=== PATIENT | male | born 1970 | race Caucasian/White ===

== ENCOUNTER 2025-03-12 11:12 | Outpatient (REF) | payer OTHER, SELFPAY ==
--- NOTE | 2025-03-12 | EMG_ITS ---
Chief complaint: For about a year patient has been having right footdrop with numbness on dorsum of right foot. He denies any significant pain. History of type 1 diabetes. Reason for referral: Evaluate for radiculopathy versus neuropathy Referred by: Javier SEXTON Procedure done: Bilateral lower extremity NCS/EMG Precautions and/or limitations: None The limb temperature was monitored continuously and remained between 32-36 degrees C during the performance of the NCS. Nerve Conduction Studies Anti Sensory Summary Table ?Stim Site NR Onset (ms) Norm Onset (ms) Peak (ms) Norm Peak (ms) O-P Amp (?V) Norm O-P Amp Site1 Site2 Delta-0 (ms) Dist (cm) Billy (m/s) Norm Billy (m/s) Left Sural Anti Sensory (Lat Mall) Calf ? 3.4 4.0 <4.0 10.2 >5.0 Calf Lat Mall 3.4 14.0 41 Right Sural Anti Sensory (Lat Mall) Calf ? 3.0 3.5 <4.0 12.6 >5.0 Calf Lat Mall 3.0 14.0 47 Motor Summary Table ?Stim Site NR Onset (ms) Norm Onset (ms) O-P Amp (mV) Norm O-P Amp iAmp (mV) Amp (1st) (%) Site1 Site2 Delta-0 (ms) Dist (cm) Billy (m/s) Norm Billy (m/s) Left Peroneal Motor (Ext Dig Brev) Ankle ? 5.1 <4.0 1.0 >2.5 1.1 100.0 Ankle Ext Dig Brev 5.1 0.0 B Fib ? 11.3 1.0 1.2 100.0 B Fib Ankle 6.2 30.0 48 >40 Poplt ? 12.6 1.0 1.2 100.0 Poplt B Fib 1.3 5.0 38 >40 Right Peroneal Motor (Ext Dig Brev) Ankle ? 5.4 <4.0 4.1 >2.5 4.9 100.0 Ankle Ext Dig Brev 5.4 0.0 B Fib ? 11.3 6.6 8.1 161.0 B Fib Ankle 5.9 27.5 47 >40 Poplt ? 12.5 6.5 8.0 158.5 Poplt B Fib 1.2 6.0 50 >40 Right Peroneal TA Motor (Tib Ant) Fib Head ? 3.4 <4.2 3.0 3.2 100.0 Fib Head Tib Ant 3.4 0.0 Poplit ? 4.2 <5.7 3.0 3.2 100.0 Poplit Fib Head 0.8 6.0 75 >40.5 Left Tibial Motor (Abd Thakkar Brev) Ankle ? 4.1 <5 13.4 >2.5 16.7 100.0 Ankle Abd Thakkar Brev 4.1 0.0 Knee ? 13.1 10.7 13.3 79.9 Knee Ankle 9.0 37.0 41 >40 Right Tibial Motor (Abd Thakkar Brev) Ankle ? 4.5 <5 11.4 >2.5 13.8 100.0 Ankle Abd Thakkar Brev 4.5 0.0 Knee ? 14.5 10.9 13.4 95.6 Knee Ankle 10.0 38.0 38 >40 EMG ?Side Muscle Nerve Root Ins Act Fibs Psw Amp Dur Poly Recrt Int Pat Comment Right AbdHallucis MedPlantar S1-2 Nml Nml Nml Nml Nml 0 Nml Complete Right AntTibialis Dp Br Peron L4-5 Nml Nml Nml Nml Nml 0 Nml Complete Right PostTibialis Tibial L5, S1 Nml Nml Nml Nml Nml 0 Nml Complete Right MedGastroc Tibial S1-2 Incr 1+ 1+ Nml Nml 0 Nml Complete Right VastusMed Femoral L2-4 Nml Nml Nml Nml Nml 0 Nml Complete Left AbdHallucis MedPlantar S1-2 Nml Nml Nml Nml Nml 0 Nml Complete Left AntTibialis Dp Br Peron L4-5 Nml Nml Nml Nml Nml 0 Nml Complete Left PostTibialis Tibial L5, S1 Nml Nml Nml Nml Nml 0 Nml Complete Left MedGastroc Tibial S1-2 Nml Nml Nml Nml Nml 0 Nml Complete Left VastusMed Femoral L2-4 Nml Nml Nml Nml Nml 0 Nml Complete Paraspinal EMG ?Side Muscle Nerve Root Ins Act Fibs Psw Comment Right Lumbar Upper Rami Nml Nml Nml Right Lumbar Mid Rami Incr 1+ 1+ Right Lumbar Lower Rami Incr 1+ 1+ Left Lumbar Upper Rami Nml Nml Nml Left Lumbar Mid Rami Nml Nml Nml Left Lumbar Lower Rami Nml Nml Nml FINDINGS: Right peroneal nerve showed prolonged distal latency, normal amplitude and normal conduction velocity. No conduction block across fibular neck. Right tibial nerve showed normal distal latency, normal amplitude and slow conduction velocity. Left peroneal nerve showed very small amplitudes, almost absent, with slow conduction velocity across fibular neck. All other nerves tested were within normal. Concentric needle EMG was performed in selected muscles of the bilateral lower extremity and lumbar paraspinals. Study revealed signs of electric abnormalities as shown in the table above. Right medial gastrocnemius showed increased insertional activity, PSWs and fibrillations. Right mid/low lumbar paraspinals showed increased insertional activity, PSWs and fibrillations. IMPRESSION: 1. This is an abnormal study. 2. There is electrodiagnostic evidence for right L5-S1 radiculopathy. 3. 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 However patient has a cyst on top of EDB muscle which could have prevented full stimulation. 4. There is no evidence for lumbar plexopathy or peripheral neuropathy. CLINICAL COMMENT: Further clinical correlation recommended. Thank you for your kind referral. Lakisha Massey MD, ANNAMARIE Board Certified, [place] Board of Physical Medicine and Rehabilitation (ABPMR) Board Certified, [place] Board of Electrodiagnostic Medicine (ABEM) CODIN [id number] x 2 extremities MTDD
--- OUTSIDE RECORDS SUMMARY | 2025-03-12 13:52 | XMS_ITS | Clinical Summary ---
Author Organization [place] [facility] lin Address [address] [facility] [place] [address] Care Team Providers Care Production Trainer Name Role Phone Unavailable Primary Care Provider Unavailabl e Social History Tobacco Use Types Packs/Day Years Used Date Smoking Tobacco: Never Assessed Sex and Gender Information Value Date Recorded Sex Assigned at Not on file Legal Sex Male 9:29 AM EDT Gender Identity Not on file Sexual Orientation Not on file Plan of Treatment Not on file Medical Devices Not on file Insurance [facility]
--- OUTSIDE RECORDS SUMMARY | 2025-03-12 13:52 | XMS_ITS | Clinical Summary ---
Author Organization [address] Building Address [address] [place] [address] Phone Care Team Providers Care Package Reinspector Name Role Phone Yarely Rodriguez RESERVATION AGENT Primary Care Provider [phone] Allergies No known active allergies Medications levothyroxine (SYNTHROID, LEVOTHROID) 100 mcg tablet Take 1 tablet (100 mcg total) by mouth 1 (one) time each day. Active atorvastatin (LIPITOR) 20 mg tablet Take 1 tablet (20 mg total) by mouth 1 (one) time each day. Active insulin lispro (HumaLOG) 100 UNIT/ML patient supplied pump 1 EA by continuous sub-Q infusn (via wearable injector) route continuously. 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 Hyperlipidemia 08/09/2023 Type 1 diabetes mellitus ([facility] V24, [facility] V 28) 08/09/2023 Encounters Date Type Department Care Team Description 01/20/2025 Telephone Internal Medicine - [address] [phone] Yarely Rodriguez NP from Last 3 Months Immunizations Immunization Administration Dates Next Due Pneumococcal conjugate 20 va lent (Prevnar 20, PCV 20) 2mo and older 12/12/2023 Tdap Tetanus diptheria acell ular pertussis (Boostrix; Adacel) 7yo and older 11/04/2024 Medical History Medical History Date Comments Juvenile arthritis ([facility] V24, [facility] V28) Family History Medical History Relation Name Comments Hyperlipidemia Brother Hypertension Brother Glaucoma Father Prostate cancer Father Diabetes Mother Heart attack Mother Hyperlipidemia Sister Hypertension Sister Relation Name Status Comments Brother Father Mother Sister Social History Tobacco Use Types Packs/Day Years Used Date Smoking Tobacco: Never Smokeless Tobacco: Never Alcohol Use Standard Drinks/Week Comments Yes 10 (1 standard drink = 0.6 oz pu re alcohol) Sex and Gender Information Value Date Recorded Sex Assigned at Male 08/05/2024 3:48 PM EDT Legal Sex Male 12:28 AM EST Gender Identity Male 08/05/2024 3:48 PM EDT Sexual Orientation Straight 08/05/2024 3: 48 PM EDT Obstetrics History Last Filed Vital Signs Vital Sign Reading Time Taken Comments Blood Pressure 132/86 11/04/2024 11:13 AM EDT Pulse 68 11/04/2024 11:13 AM EDT Temperature 36.7 C (98 F) 11/04/2024 11:13 AM EDT Respiratory Rate - - Oxygen Saturation 97% 11/04/2024 11:13 AM EDT Inhaled Oxygen Concentration - - Weight 84 kg (185 lb 3.2 oz) 06/07/2024 9:27 AM EST Height 167.6 cm (5' 6 ) 06/07/2024 9:27 AM EST Body Mass Index 29.89 06/07/2024 9:27 AM EST Plan of Treatment Health Maintenance Due Date Last Done Comments Colorectal Cancer Screening: Colonoscopy 1970 Diabetes: Annual Foot Exam 1980 Diabetes: Annual Retina Eye Exam 1980 Hepatitis B Vaccines (1 of 3 - 19+ 3-dose series) 1989 RSV Immunization Adult Patients (1 - Risk 50-74 years 1-dose series) 2020 Zoster Vaccines (1 of 2) 2020 HIV Screening 04/03/2022 Social Influencers of Health Screening 04/03/2022 Diabetes: Annual Urine Albumin-Creatinine Ratio (uACR) 11/22/2023 Diabetes: Blood Sugar Contro l Test (HGBA1C) 11/22/2023 Depression Screening 05/01/2024 COVID-19 Vaccine ( - 2024-2 6 season) 2024 04/19/2021, 08/29/2020, 07/30/2020 Influenza Vaccine (#1) 2024 Diabetes: Annual GFR (Glomerular Filtration Rate) 04/16/2025 04/16/2024, 12/12/2023 Cholesterol Screening (Lipid Panel) 12/11/2028 12/12/2023, 12/12/2023 DTaP,Tdap,and Td Vaccines (2 - Td or Tdap) 11/04/2034 11/04/2024 Hepatitis C Screening Completed 08/09/2023 Pneumococcal Vaccine: 50+ Years Completed 12/12/2023 HIB Vaccines Aged Out No longer eligi ble based on patient's age to complete this topic HPV Vaccines Aged Out No longer eligi ble based on patient's age to complete this topic Hepatitis A Vaccines Aged Out No long er eligible based on patient's age to complete this topic IPV Vaccines Aged Out No longer eligi ble based on patient's age to complete this topic MMR Vaccines Aged Out No longer eligi ble based on patient's age to complete this topic Meningococcal ACWY Vaccine Aged Out N o longer eligible based on patient's age to complete this topic Meningococcal B Vaccine Aged Out No l onger eligible based on patient's age to complete this topic RSV Immunization Patients Under 20 months Aged Out No longer eligible b ased on patient's age to complete this topic Varicella Vaccines Aged Out No longer eligible based on patient's age to complete this topic Procedures Procedure Name Priority Date/Time Associated Diagnosis Comments COMPREHENSIVE METABOLIC PANEL Routine 04/16/2024 10:21 AM EST Polyarthralgia LIPID PANEL Routine 12/12/2023 HEPATITIS C SCREENING Routine 08/09/2023 from Last 3 Months or Most Recently Relevant to Health Maintenance Results * (ABNORMAL) Comprehensive metabolic panel (04/16/2024 10:21 AM EST) Sodium 137 133 - 145 mmol/L LAB CHEMISTRY METHOD 04/16/2024 4:39 PM EST [facility] Potassium 4.4 3.5 - 5.5 mmol/L LAB CHEMISTRY METHOD 04/16/2024 4:39 PM [facility] Chloride 104 96 - 110 mmol/L LAB CHEMISTRY METHOD 04/16/2024 4:39 PM [facility] CO2 28 21 - 32 mmol/L LAB CHEMISTRY METHOD 04/16/2024 4:39 PM [facility] Anion Gap 5 3 - 11 LAB CHEMISTRY METHOD 04/16/2024 4:39 PM [facility] Glucose 210(H) 70 - 100 mg/dL LAB CHEMISTRY METHOD 04/16/2024 4:39 PM [facility] BUN 21 5 - 25 mg/dL LAB CHEMISTRY METHOD 04/16/2024 4:39 PM [facility] Creatinine 1.07 0.70 - 1.30 mg/dL LAB CHEMISTRY METHOD 04/16/2024 4:39 PM [facility] eGFR 83 >=60 mL/min/1. 73m2 LAB CHEMISTRY METHOD 04/16/2024 4:39 PM [facility] Comment:Calculation based on the Chronic Kidney Disease Epidemiology Collaboration (CKD-EPI) equation refit without adjustment for race. BUN/Creatinine Ratio 19.6 LAB CHEMISTRY METHOD 04/16/2024 4:39 PM [facility] Calcium 9.1 8.5 - 10.5 mg/dL LAB CHEMISTRY METHOD 04/16/2024 4:39 PM [facility] AST (SGOT) 34 10 - 42 unit/L LAB CHEMISTRY METHOD 04/16/2024 4:39 PM [facility] ALT (SGPT) 39 10 - 60 unit/L LAB CHEMISTRY METHOD 04/16/2024 4:39 PM [facility] Alkaline Phosphatase 48 42 - 121 unit/L LAB CHEMISTRY METHOD 04/16/2024 4:39 PM [facility] Total Protein 7.0 6.0 - 8.0 g/dL LAB CHEMISTRY METHOD 04/16/2024 4:39 PM [facility] Albumin 4.4 3.2 - 5.0 g/dL LAB CHEMISTRY METHOD 04/16/2024 4:39 PM EST [facility] Total Bilirubin 0.8 0.0 - 1.4 mg/dL LAB CHEMISTRY METHOD 04/16/2024 4:39 PM EST [facility] Blood Venous blood specimen / Unknown Venipuncture / Unknown 04/16/2024 10:21 AM EST 04/16/2024 10:21 AM EST Yarely Rodriguez RESERVATION AGENT LAB BLOOD ORDERABLES Final Resu lt [facility] [address] [place] [address], * Lipid panel (12/12/2023) LDL/HDL Ratio 2 Triglycerides 80 mg/dL Cholesterol 174 mg/dL HDL 85 mg/dL LDL Cholesterol 73 mg/dL Blood Venous blood specimen / Unknown Historical Provider LAB BLOOD ORDERABLES Munira l Result * Hepatitis C Screening (08/09/2023) Pathologist [facility] Hepatitis C Screening negative Historical Provider HEALTH MAINTENANCE Final Result from Last 3 Months or Most Recently Relevant to Health Maintenance Insurance [facility] Care Teams Package Reinspector Relationship Specialty Start Date End Date Yarely Rodriguez NP [address] [place] [address] PCP - General 07/31/23
--- OUTSIDE RECORDS SUMMARY | 2025-03-12 13:52 | XMS_ITS | Clinical Summary ---
Author Organization [facility] Address [address] [place] [address] Care Team Providers Care Lens Molder Name Role Phone Jacob Wolf MD Primary Care Provider [phone] Allergies No known active allergies Medications Medication Sig Dispensed Refills Start Date End Date Status lisinopril (PRINIVIL,ZESTRIL) tablet 10 mg Take 10 mg by mouth daily. 0 Active Family History Medical History Relation Name Comments Cancer Father Diabetes Mother Relation Name Status Comments Father Mother Social History Tobacco Use Types Packs/Day Years Used Date Smoking Tobacco: Former Cigarettes Q uit: 09/16/2007 Smokeless Tobacco: Never Alcohol Use Standard Drinks/Week Comments Yes 6 (1 standard drink = 0.6 oz pur e alcohol) Sex and Gender Information Value Date Recorded Sex Assigned at Not on file Gender Identity Not on file Sexual Orientation Not on file Job Start Date Occupation Industry Not on file Not on file Not on file Last Filed Vital Signs Vital Sign Reading Time Taken Comments Blood Pressure - - Pulse - - Temperature - - Respiratory Rate - - Oxygen Saturation - - Inhaled Oxygen Concentration - - Weight 78 kg (172 lb) 09/15/2021 1:35 PM EDT Height 167.6 cm (5' 6 ) 09/15/2021 1:35 PM EDT Body Mass Index 27.76 09/15/2021 1:35 PM EDT Plan of Treatment Health Maintenance Due Date Last Done Comments Hepatitis B Vaccines (1 of 3 - 3-dose series) 1970 Hepatitis C Screening 1970 COVID-19 Vaccine (#1) 1970 Depression Screening 1982 BMI Counseling 1988 Preventative Health Evaluation 1988 DTap / Tdap / Td (1 - Tdap) 1989 Colon Cancer Screening (Colonoscopy) 06/30/2015 Shingrix-Zoster Vaccine (1 of 2) 2020 Influenza Vaccine (#1) 2024 Pneumococcal Vaccine Aged Out No long er eligible based on patient's age to complete this topic RSV Ped < 20 months Aged Out No longe r eligible based on patient's age to complete this topic Care Teams Lens Molder Relationship Specialty Start Date End Date Jacob Wolf MD [address] [address] PCP - General Internal Medicine 09/14/21
== END 2025-03-12 11:13 | disposition home or self-care (01) ==
LOC: HO.NEURO 11:12
PROVIDERS: PCP Nurse Practitioner Primary Care; Visit Provider Physician Assistant
DX: G90.09 Other idiopathic peripheral autonomic neuropathy (principal); R53.1 Weakness; R20.0 Anesthesia of skin
CPT/HCPCS: 95886; 95909

== ENCOUNTER → 2025-03-12 11:18 | Outpatient (BNV) | payer OTHER, SELFPAY | PROVIDERS: PCP Nurse Practitioner Primary Care; Visit Provider Physical Medicine & Rehabilitation | DX: M54.16 Radiculopathy, lumbar region (principal); M71.38 Other bursal cyst, other site | CPT/HCPCS: 95886; 95909 ==

== ENCOUNTER 2025-03-31 09:09 | Outpatient (AMB) | payer OTHER, SELFPAY ==
[2025-03-31 09:13] VITALS: BMI 28.7
--- NOTE | 2025-03-31 09:13 | A.PHYSOV_ITS ---
Vital Signs 03/31/25 09:13 Height 5 ft 6 in Weight 178 lb BMI 28.7 Intake Visit Reasons: Right neck & left shoulder pain ([facility] 03/12) Intake Note: Patient is a54 year old male here today for EMG result review. Public Health Informatician Required: No Allergies No Known Allergies Allergy (Verified 03/31/25 09:14) HPI Comments Details: Mr. Flores is a 54-year-old male seen in evaluation today for right-sided low back and leg pain with paresthesia. Patient also reports antalgic gait. Patient reports symptoms worsening over the past few months. He has a pain level today of 6/10. He completed 6 weeks of physical therapy without relief. He has been using Tylenol and anti-inflammatories for pain. Denies any incontinence, saddle anesthesia urinary retention. Patient underwent right S1 TFESI without any relief of his symptoms on 09/20/2023. Patient reports persistent right-sided groin pain with stiffness ordered MRI of his right hip which does confirm mild arthritis as well as greater trochanteric bursitis. I performed hip bursal injection last visit which was not helpful. Patient is experiencing progressive weakness of right lower extremity despite treatment. I ordered EMG testing of bilateral lower extremities and we are reviewing it in person today. [facility] Surgical History (Updated 03/31/25 @ 09:16 by Chelsy Gonzalez MA) H/O foot surgery Social History Alcohol intake: current Alcohol intake frequency: holidays/special occasions only Patient Tobacco Use Status: Never used Tobacco Substance Use Type: Marijuana Current occupational status: employed Review of Systems Narrative Low back pain, no incontinence, saddle anesthesia urinary retention. Physical Exam Exam Exam: Lumbar Spine: Examination of his lumbar spine, there is no visible swelling or deformity. He is tender to lower lumbar facets. He is otherwise nontender. Full range of motion of his lumbar spine. He does have an increase in pain with facet loading. Special Tests: Lhermittes sign was negative Heel Toe walk is normal Left straight leg raise: Negative Right straight leg raise: Negative Special tests Ju test is negative Ganslen's test is negative SI Joint compression test negative Stephany test negative Piriformis stretch is negative Lower Extremities: Limited range of motion of his right hip and external rotation and abduction. He is tender to greater trochanteric bursa. No calf pain or edema. Neuro: Sensation: Intact to lower extremities bilaterally Strength L2 (Psoas): 5/5 on the left and 5/5 on the right. L3 (Quads): 5/5 on the left and 5/5 on the right. L4 (Ant tibialis): 5/5 on the left and 5/5 on the right. L5 (EHL) 5/5 on the left and 5/5 on the right. S1 (Gastroc): 5/5 on the left and 5/5 on the right. DTR L4: (Patellar) Left 2 Right 2 S1: (Achilles) Left 2 Right 0 Babinski Downgoing No pathologic clonus. No involuntary movement. Vital Signs: BMI result Body Mass Index 28.7 Assessment & Plan Assessment & Plan (1) Lumbar radiculopathy: Code(s): M54.16 - Radiculopathy, lumbar region Category: Medical (2) Lumbar spondylosis: Code(s): M47.816 - Spondylosis without myelopathy or radiculopathy, lumbar region Category: Medical (3) Weakness of right lower extremity: Code(s): R29.898 - Other symptoms and signs involving the musculoskeletal system Category: Medical Plan: Mr. Flores is a 54-year-old male seen in consultation today for right lower extremity weakness. Patient has undergone extensive treatment and is still feeling progressive weakness particularly to the right lower extremity. MRI of his lumbar spine shows no significant nerve root compression. EMG testing does suggest that he has right S1 radiculopathy. Right S1 TFESI was performed but offered no relief. Patient also underwent MRI of his right hip which does confirm mild osteoarthritis but would not be responsible for his progressive weakness. I am concerned there is some underlying neurological condition that I am unable to identiify. I recommend referral to Neurology for further evaluation and treatment. Patient may consider intra-articular injection of his right hip but that certainly will not affect his weakness, but improve his groin pain and stiffness. Recommend follow-up with our office as needed. Insert thank give Plan Above. Orders: Referrals Neurology Referral R29.898 - Other symptoms and signs involving the musculoskeletal system Coding Level of Care Code Tele Est Pt Level 3 (88885) Diagnoses Lumbar radiculopathy M54.16 Lumbar spondylosis M47.816 Weakness of right lower extremity R29.249
--- OUTSIDE RECORDS SUMMARY | 2025-03-31 10:41 | XMS_ITS | Clinical Summary ---
Author Organization [address] Building Address [address] [place] [address] Phone Care Team Providers Care Wrecking Car Driver Name Role Phone Yarely Rodriguez OBSTETRICS SCRUB NURSE Primary Care Provider [phone] Allergies No known active allergies Medications levothyroxine [...] Hyperlipidemia 08/09/2023 Type 1 diabetes mellitus ([facility] V24, 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 V24, [facility] V28) Family History Medical History [...] LAB CHEMISTRY METHOD 04/16/2024 4:39 PM EST [facility] Potassium 4.4 3.5 - 5.5 mmol/L LAB CHEMISTRY METHOD 04/16/2024 4:39 PM [facility] Chloride 104 96 - 110 mmol/L LAB CHEMISTRY METHOD 04/16/2024 4:39 PM [facility] CO2 28 21 - 32 mmol/L LAB CHEMISTRY METHOD 04/16/2024 4:39 PM [facility] Anion Gap 5 3 - 11 LAB CHEMISTRY METHOD 04/16/2024 4:39 PM [facility] Glucose 210(H) 70 - 100 mg/dL LAB CHEMISTRY METHOD 04/16/2024 4:39 PM [facility] BUN 21 5 - 25 mg/dL LAB CHEMISTRY METHOD 04/16/2024 4:39 PM [facility] Creatinine 1.07 0.70 - 1.30 mg/dL LAB CHEMISTRY METHOD 04/16/2024 4:39 PM [facility] eGFR 83 >=60 mL/min/1. 73m2 LAB CHEMISTRY METHOD 04/16/2024 4:39 PM [facility] Comment:Calculation based on the Chronic Kidney Disease Epidemiology Collaboration (CKD-EPI) equation refit without adjustment for race. BUN/Creatinine Ratio 19.6 LAB CHEMISTRY METHOD 04/16/2024 4:39 PM [facility] Calcium 9.1 8.5 - 10.5 mg/dL LAB CHEMISTRY METHOD 04/16/2024 4:39 PM [facility] AST (SGOT) 34 10 - 42 unit/L LAB CHEMISTRY METHOD 04/16/2024 4:39 PM [facility] ALT (SGPT) 39 10 - 60 unit/L LAB CHEMISTRY METHOD 04/16/2024 4:39 PM [facility] Alkaline Phosphatase 48 42 - 121 unit/L LAB CHEMISTRY METHOD 04/16/2024 4:39 PM [facility] Total Protein 7.0 6.0 - 8.0 g/dL LAB CHEMISTRY METHOD 04/16/2024 4:39 PM [facility] Albumin 4.4 3.2 - 5.0 g/dL LAB CHEMISTRY METHOD 04/16/2024 4:39 PM EST [facility] Total Bilirubin 0.8 0.0 - 1.4 mg/dL LAB CHEMISTRY METHOD 04/16/2024 4:39 PM EST [facility] Blood Venous blood specimen / Unknown Venipuncture / Unknown 04/16/2024 10:21 AM EST 04/16/2024 10:21 AM EST Yarely Rodriguez OBSTETRICS SCRUB NURSE LAB BLOOD ORDERABLES Final Resu lt [facility] [address] [place] [address], * Lipid panel (12/12/2023) LDL/HDL Ratio 2 Triglycerides 80 mg/dL Cholesterol 174 mg/dL HDL 85 mg/dL LDL Cholesterol 73 mg/dL Blood Venous blood specimen / Unknown Historical Provider LAB BLOOD ORDERABLES Munira l Result * Hepatitis C Screening (08/09/2023) Pathologist [facility] Hepatitis C Screening negative Historical Provider HEALTH MAINTENANCE Final Result from Last 3 Months or Most Recently Relevant to Health Maintenance Insurance [facility] Care Teams Wrecking Car Driver Relationship Specialty Start Date End Date Yarely Rodriguez NP [address] [place] [address] PCP - General 07/31/23
--- OUTSIDE RECORDS SUMMARY | 2025-03-31 10:41 | XMS_ITS | Clinical Summary ---
Author Organization [facility] Address [address] [place] [address] Care Team Providers Care Logistics Planning Manager Name Role Phone Jacob Wolf MD Primary Care Provider [phone] Allergies No known active allergies Medications Medication [...] age to complete this topic Care Teams Logistics Planning Manager Relationship Specialty Start Date End Date Jacob Wolf MD [address] [address] PCP - General Internal Medicine 09/14/21
--- OUTSIDE RECORDS SUMMARY | 2025-03-31 10:41 | XMS_ITS | Clinical Summary ---
Author Organization [email or web address] lin Address [address] [facility] [place] [address] Care Team Providers Care Bird Keeper Name Role Phone Unavailable Primary Care Provider Unavailabl e Social History Tobacco Use Types Packs/Day Years Used Date Smoking Tobacco: Never Assessed Sex and Gender Information Value Date Recorded Sex Assigned at Not on file Legal Sex Male 9:29 AM EDT Gender Identity Not on file Sexual Orientation Not on file Plan of Treatment Not on file Medical Devices Not on file Insurance [facility]
== END 2025-03-31 09:40 | disposition home or self-care (01) ==
LOC: HO.HPHYS 09:09
PROVIDERS: PCP Nurse Practitioner Primary Care; Visit Provider Physician Assistant
DX: M54.16 Radiculopathy, lumbar region (principal); M47.816 Spondylosis without myelopathy or radiculopathy, lumbar region; R29.898 Other symptoms and signs involving the musculoskeletal system
CPT/HCPCS: 99213